=== PATIENT | male | born 1970 | race Caucasian/White ===

== ENCOUNTER 2019-05-10 14:41 | Emergency (ER) | payer SELFPAY ==
--- NOTE | 2019-05-10 14:55 | DI.US_ITS ---
EXAM: US LOWER EXTREMITY VENOUS LT CLINICAL HISTORY: Left leg pain, atraumatic left calf swelling, r/o DVT, left leg. TECHNIQUE: Ultrasound was performed using standard protocol. COMPARISON: No exams were available for comparison FINDINGS: The femoral and popliteal veins and visualized calf veins are freely compressible. The Doppler venou s waveform augments normally. No thrombus is visible. There is a Mcintosh's cyst measuring 5.8 x 1.6 x 4.9 cm. There are internal echoes. Fluid is seen extending into the superomedial calf over a nearl y 10 centimeter area. Findings likely represent a ruptured Mcintosh's cyst. IMPRESSION: No evidence of DVT. Ruptured Mcintosh's cyst versus Mcintosh's cyst and hematoma.
[2019-05-10 14:56] VITALS: BP 142/73; PULSE 78; RESP 16; TEMP 37.1; O2SAT 98
--- NOTE | 2019-05-10 14:59 | ED.GENADUL_ITS ---
Discharge Plan Disposition Patient Disposition: HOME Condition: Stable Discharge Details Chief Complaint: GenMedical Clinical Impression: Mcintosh's cyst, ruptured Primary Care Provider: Keesha Payne ED Provider: Miguel Angel Singh Home Meds and New Rx's Prescriptions: New ibuprofen [IBU] 600 mg tablet 600 mg PO Q6H Qty: 20 RF: 0 Discontinued ibuprofen 800 MG tablet 800 mg PO TID PRN PRNQty: 30 RF: 0 Discharge Instructions Instructions: Compartment Syndrome (GEN), Bakers Cyst (ED) Additional Instructions: Please keep leg strictly elevated and and use crutches for ambulation. Take ibuprofen 600 mg every 6 hours for the next couple days and follow-up with orthopedist. Return immediately for any of the discussed emergent symptoms. Referrals: Cayden Traylor MD [ [facility]FF PHYSICIAN] - Discharge Data Discharge Date/Time-TO BE ENTERED AT DEPARTURE: 05/10/19 19:30 <Miguel Angel Singh NP - Last Filed: 05/16/19 09:39> Patient signed out to me by Marietta BENAVIDES, patient pending official ultrasound results, and further labs. Reviewed patient's labs and has slightly elevated ESR of 27, nondiagnostic CBC with only slight anemia at 13.4, CMP nondiagnostic, patient still pending tick panel and RF. Reviewed plain film imaging and imaging shows unremarkable findings for the wrist and left knee shows effusion with radiologist questioning possible patella fracture. Reassessed patient patient denies any injury or trauma that occurred prior to this event. Upon reassessment did note the patient's leg was very hot and swollen with significant amount of pain and palpation to calf. Question of infection versus possible compartment syndrome given severe tenderness. Patient did report that this morning he did have some paresthesias to the foot. Orthopedic was paged and pending results patient given Rocephin and ketorolac. Spoke with Dr. Traylor who came in to evaluate patient for concern of compartment syndrome. After evaluation by orthopedist patient was cleared for discharge with recommendation for scheduled NSAIDs strict elevation of the extremity and rest. Patient to follow-up with orthopedic office first thing tomorrow morning and states clear understanding of return precautions. After discussion of diagnosis and plan of care patient has no further needs, questions, or concerns and states clear understanding to return to the emergency department for any worsening symptoms. HPI <Demi A Franco, PA - Last Filed: 05/12/19 21:59> General Date/Time Provider Initiated Documentation: 05/10/19 14:55 . HPI Narrative: Is a very pleasant 49-year-old man who presents to the ER today for 2 weeks complaints of leg discomfort. Patient reports history of left knee effusion intermittently for several years. Patient reports onset of left knee swelling for the last 2 weeks which then continued to extend distally. Patient reports the last 3 days significant lower leg swelling which is now becoming increasingly swollen and difficult to ambulate. Patient reports mild warmth. Mild erythema. Patient denies any specific injury or trauma. Patient reports of no the swelling in his lower leg began after his left wrist was swollen without injury or trauma for several days then swelling improved spontaneously without treatment. Patient reports persistent mild stiffness in the left wrist. Patient reports onset of febrile sensation in the last 2 days but no measured temperature. Mild associated chills. Difficulty sleeping at night for the last few nights given chills and leg pain. Patient denies associated headache or dizziness. Denies difficulty breathing shortness of breath or wheezing. No cough, no hemoptysis. Related Data Home Medications Medication Instructions Recorded Confirmed ibuprofen [IBU] 600 mg PO Q6H #20 tab 05/10/19 Previous Rx's Medication Instructions Recorded ibuprofen [IBU] 600 mg PO Q6H #20 tab 05/10/19 Allergies Allergy/AdvReac Type Severity Reaction Status Date / Time No Known Allergies Allergy Unverified 05/10/19 15:01 General Stated Complaint: GenMedical ROGER: 3 Review of Systems <MAKAYLA Simms - Last Filed: 05/12/19 21:59> Review of Systems ROS Unobtainable: All systems reviewed & are unremarkable except as noted in HPI and below Constitutional Constitutional: Reports chills, Reports fever(s), Denies headache(s) and Reports malaise ENT Ears, Nose, Mouth, and Throat: Denies headache(s) and Denies neck pain Musculoskeletal Musculoskeletal: Reports abnormal gait, Denies back pain, Denies deformity and Denies neck pain Integumentary/Breasts Skin/Breast: Reports erythema, Reports skin swelling and Denies wounds Neurologic Neurologic: Reports abnormal gait and Denies headache(s) PFS <MAKAYLA Simms - Last Filed: 05/12/19 21:59> Social History Smoking/Tobacco Use Status: Former Tobacco Use Alcohol Intake: current Alcohol Intake frequency: a few times a month Drug use: Occasionally Substance use type: marijuana Do you feel safe at home: Yes Do you feel safe in your relationship?: Yes Exam <MAKAYLA Simms - Last Filed: 05/12/19 21:59> Narrative Exam Narrative: CONST: Healthy appearing patient, in no acute distress. Well hydrated. Alert and alert. HENMT: Head nomocephalic, normal to inspection. Atraumatic. Hearing grossly normal. EYES: General normal appearance. Alignment normal. Eyelids normal. Conjunctiva normal. NECK: Normal visual inspection. FROM. Trachea midline. No Midline tenderness. CHEST: Normal insepection of the chest. RESP: Normal respiratory effort. Speaking full sentences. No cough. No audible wheezing. No retractions. CARDIO: No JVD. No murmurs or rubs. MUSCULOSKELETAL: Normal Gait. FROM of all extremities. Significant swelling to the left leg compared to the right. Moderate left-sided knee effusion. Able to flex and extend with some difficulty due to swelling in the left knee. No obvious joint infection. Moderate swelling throughout the entire lower leg beyond the knee. Swelling involves the foot. Erythema to the moe without focal wounds or drainage. Pulses are intact distally. Sensation intact distally SKIN: Normal. Dry. No rashes. NEURO: Alert and awake. Speech clear. PSYCH: Normal affect. Cooperative. Sign Out <MAKAYLA Simms - Last Filed: 05/12/19 21:59> Sign Out Data: Sign Out Comment: Signed out pending official ultrasound read, lab results and disposition for complaints of significant left lower leg swelling. Last updated by Demi Franco PA at 05/10/19 16:22
[2019-05-10 15:15] LABS: Abs Immature Grans 0.02 k/cumm (0.0-0.09); Absolute Basophil Count 0.02 k/cumm (0.0-0.2); Absolute Lymphocyte Count 1.66 k/cumm (1.2-3.4); Absolute Monocyte Count 1.24 k/cumm (0.11-0.7); Absolute Neutrophil Count 7.17 k/cumm (1.2-6.7); Basophils % 0.2; HCT 39.3 % (40.0-50.0); HGB 13.4 g/dL (13.5-17.5); Immature Grans % 0.2; Lymphocytes % 16.3; Mean Corp. HGB Concentration 34.1 g/dL (32.0-36.0); Mean Corpuscular Hemoglobin 30.9 pg (27.0-33.0); Mean Corpuscular Volume 90.8 fL (80-95); Mean Platelet Volume 9.8 fL (8.0-11.0); Monocytes % 12.1; Neutrophils % 70.2; Platelet Count 243 x1000/uL (130-400); RBC 4.33 m/cumm (4.50-6.00); RBC Distribution Width 12.2 % (11.8-14.1); White Blood Cell Count 10.21 k/cumm (4.4-10.8)
[2019-05-10 15:26] LABS: ALT 13 U/L (16-63); AST 14 U/L (15-37); Albumin 3.4 g/dL (3.4-5.0); Alkaline Phosphatase 69 U/L (46-116); Anion Gap 9.2 mmol/L (3-11); BUN 12 mg/dL (7-18); Bilirubin, Total 0.8 mg/dL (0.2-1.0); CO2 26.8 mmol/L (21.0-32.0); CREATININE 1.02 mg/dL (0.70-1.30); Calcium 8.4 mg/dL (8.5-10.1); Chloride 102 mmol/L (98-107); Glucose 105 mg/dL (70-100); Potassium 4.5 mmol/L (3.5-5.1); Sodium 138 mmol/L (136-145); Total Protein 7.5 g/dL (6.4-8.2)
[2019-05-10 17:17] LABS: ESR 27 mm/hr (0-15)
--- NOTE | 2019-05-10 17:29 | DI.RAD_ITS ---
EXAM: XR WRIST LT COMPLETE INDICATION: pain. COMPARISON: No exams were available for comparison TECHNIQUE: 2D digital imaging was performed. FINDINGS: There is no evidence of a fracture or dislocation. IMPRESSION
--- NOTE | 2019-05-10 17:41 | DI.RAD_ITS ---
EXAM: XR KNEE LT 4V AP,LAT,RAFAEL,PAT INDICATION: pain. COMPARISON: No exams were available for comparison TECHNIQUE: 2D digital imaging was performed. FINDINGS: The bony structures are normally mineralized. A joint effusion is demonstrated. I could not absolutel y exclude a fracture. There is no evidence of displacement. Further assessment with CT could be obt ained.
--- NOTE | 2019-05-10 17:53 | DI.VRAD_ITS ---
PROCEDURE INFORMATION: Exam: XR Left Knee Exam date and time: 05/10/2019 5:36 PM Clinical history: 49 years old, male; Other: Pain TECHNIQUE: Imaging protocol: XR Left knee. Views: 4 or more views. COMPARISON: CR LEFT KNEE 3 VIEW COMPLETE 09/29/2017 4:18 PM FINDINGS: Bones/joints: Moderate joint effusion. Internal arrangement is not excluded. Consider MRI. Suspect comminuted patellar fracture with no displacement. Soft tissues: Normal. IMPRESSION: Moderate joint effusion. Internal arrangement is not excluded. Consider MRI. Suspect comminuted patellar fracture with no displacement. Dictated and Authenticated by: Junior Gayle MD. Ordering:JI Simms MD
--- NOTE | 2019-05-10 17:53 | DI.VRAD_ITS ---
PROCEDURE INFORMATION: Exam: XR Left Wrist Exam date and time: 05/10/2019 5:36 PM Clinical history: 49 years old, male; Other: Pain TECHNIQUE: Imaging protocol: XR Left wrist. Views: 3 or more views. COMPARISON: No relevant prior studies available. FINDINGS: Bones/joints: Normal. Soft tissues: Normal. IMPRESSION: No acute findings. Dictated and Authenticated by: Junior Gayle MD. Ordering:DAVE Michelle MD
[2019-05-10 18:25] VITALS: BP 132/77; PULSE 76; RESP 14; O2SAT 97
[2019-05-10] MEDS: cefTRIAXone 1 GM/50 ML BAG IVPB (18:38)
--- NOTE | 2019-05-10 18:48 | NUR.NOTE ---
Nursing Note: consult for general surgery for compartment syndrome.
[2019-05-10] MEDS: Ketorolac 30 MG/ML VIAL IVP (18:55)
--- NOTE | 2019-05-10 18:59 | NUR.NOTE ---
Nursing Note: ortho at bedside to eval for compartment syndrome at this time.
[2019-05-10 19:44] LABS: C-Reactive Protein 11.29 mg/dL (0.0-0.3)
[2019-05-11 10:52] LABS: Lyme Ab w Rflx to Lyme Confirm Negative
[2019-05-11 11:36] LABS: Rheumatoid Factor 16 IU/mL (<12.5)
[2019-05-12 17:28] LABS: Anaplasma phagocytophilum Negative (Negative); B. miyamotoi PCR Negative (Negative); Babesia divergens/MO-1 Negative (Negative); Babesia duncani Negative (Negative); Babesia microti Negative (Negative); Ehrlichia chaffeensis Negative (Negative); Ehrlichia ewingii/canis Negative (Negative); Ehrlichia muris eauclairensis Negative (Negative)
== END 2019-05-10 19:30 | disposition home or self-care (01) ==
PROVIDERS: Physician Assistant; Emergency Provider Nurse Practitioner Family; PCP Nurse Practitioner Family
DX: M66.0 Rupture of popliteal cyst (principal)
CPT/HCPCS: 80053; 85652; 87798; 96365; 96374; 99284; 73110; 73564; 85025; 86140; 86431; 86618; 93971; E0114; J0696; J1885

== ENCOUNTER 2019-09-30 09:09 | Outpatient (CLI) | payer BC, SELFPAY ==
--- NOTE | 2019-09-30 08:45 | DI.RAD_ITS ---
EXAM: XR WRIST LT LIMITED INDICATION: left wrist pain; tingling. COMPARISON: XR WRIST LT COMPLETE from 05/10/2019 TECHNIQUE: 2D digital imaging was performed. FINDINGS: Radial and ulnar deviation views were performed. There is some narrowing of the radial carpal joint . There is no widening of the scapholunate distance. There is a chronic appearing deformity at the r adial aspect of the distal pole of the navicular. A smoothly marginated deformity is also seen at the ulnar aspect of the triquetrum. Degenerative changes are also seen at the scaphoid trapezium and tr apezium 1st metacarpal joints. IMPRESSION: [id number] degenerative changes. Mild contour deformities of the scaphoid and triquetral may b e secondary to old fractures. DATA REPOSITORY: RADIATION DOSE DELIVERED:
== END 2019-09-30 09:29 ==
PROVIDERS: PCP Nurse Practitioner Family; Visit Provider Physician Assistant
DX: M25.532 Pain in left wrist (principal); M19.032 Primary osteoarthritis, left wrist
CPT/HCPCS: 73100

== ENCOUNTER 2020-11-21 19:49 | Outpatient (REF) | payer BC, SELFPAY ==
[2020-11-21 18:10] LABS: HCT 42.4 % (40.0-50.0); HGB 14.3 g/dL (13.5-17.5); MCH 31.6 pg (27.0-33.0); MCHC 33.7 % (32.0-36.0); MCV 93.8 fL (80-95); MPV 10.8 fL (8.0-11.0); Platelet Count 200 10^3/uL (130-400); RBC 4.52 10^6/uL (4.36-5.78); RDW 12.7 % (11.8-14.1); RDW-SD 44.1 fL; WBC 6.21 10^3/uL (4.4-10.8)
[2020-11-21 18:32] LABS: BUN 16 mg/dL (7-18); Calcium 9.1 mg/dL (8.5-10.1); Calculated LDL 131 mg/dL (<100); Chloride 105 mmol/L (98-107); Cholesterol 221 mg/dL (<200); Glucose 82 mg/dL (74-106); HDL Cholesterol 79 mg/dL (40-60); Potassium 4.7 mmol/L (3.5-5.1); Sodium 142 mmol/L (136-145); Triglyceride 56 mg/dL (<150)
== END 2020-11-21 19:50 | disposition home or self-care (01) ==
LOC: NCHCN 19:49
PROVIDERS: PCP Nurse Practitioner Family; Visit Provider Nurse Practitioner Family
DX: Z00.00 Encounter for general adult medical examination without abnormal findings (principal); Z13.220 Encounter for screening for lipoid disorders; Z13.0 Encounter for screening for diseases of the blood and blood-forming organs and certain disorders involving the immune mechanism; Z13.228 Encounter for screening for other metabolic disorders
CPT/HCPCS: 80048; 80061; 85027

== ENCOUNTER 2021-05-02 02:18 | Outpatient (CLI) | payer BC, SELFPAY ==
--- NOTE | 2021-05-02 | DI.RAD_ITS ---
Exam(s) XR ELBOW RT COMPLETE EXAM: XR ELBOW RT COMPLETE CLINICAL HISTORY: RT ELBOW PAIN, M25.521. TECHNIQUE: 2D digital imaging was performed of the left elbow. Three images were obtained. AP, lat eral and oblique views were obtained. COMPARISON: No exams were available for comparison FINDINGS: BONES: No acute fracture is present. No bony destructive lesion is seen. A small enthesophyte at the olecranon. JOINTS: The elbow is normally aligned. No joint effusion is seen. There is a small spur at the corono id process. SOFT TISSUE: There is some lifting of the anterior fat pad which may represent a small effusion. Wel l corticated osseous densities are seen adjacent to the medial epicondyle which are old. IMPRESSION: Question of a small elbow joint effusion. No acute abnormality. If there is concern for internal de rangement an MRI may be considered for further evaluation. DATA REPOSITORY: RADIATION DOSE DELIVERED:
--- NOTE | 2021-05-02 | DI.RAD_ITS ---
Exam(s) XR WRIST LT COMPLETE EXAM: XR WRIST LT COMPLETE CLINICAL HISTORY: LT WRIST PAIN,M25.532. TECHNIQUE: 2D digital imaging was performed of the left wrist. Three images were obtained. PA, obl ique and lateral views were obtained. COMPARISON: CR XR WRIST LT COMPLETE from 05/10/2019 CR XR WRIST LT LIMITED from 09/30/2019 CR XR WRIST LT LIMITED from 09/30/2019 FINDINGS: BONES: No acute fracture is present. No bony destructive lesion is seen. Unchanged chronic deformitie s of the scaphoid and triquetrum. JOINTS: The carpal bones are normally aligned. Joint spaces are well maintained. SOFT TISSUE: Normal. IMPRESSION: No acute abnormality. DATA REPOSITORY: RADIATION DOSE DELIVERED:
== END 2021-05-02 02:38 ==
PROVIDERS: PCP Nurse Practitioner Family; Visit Provider Nurse Practitioner Family
DX: M25.521 Pain in right elbow (principal); M25.532 Pain in left wrist
CPT/HCPCS: 73080; 73110

== ENCOUNTER 2023-10-09 12:28 | Outpatient (REF) | payer BC, SELFPAY ==
[2023-10-09 15:37] LABS: HCT 41.5 % (40.0-50.0); MCH 31.1 pg (27.0-33.0); MCHC 33.7 % (32.0-36.0); MCV 92 fL (80-95); MPV 10.9 fL (8.0-11.0); Platelet Count 207 10^3/uL (130-400); RDW 12.7 % (11.8-14.1); RDW-SD 43.2 fL; WBC 6.41 10^3/uL (4.4-10.8)
[2023-10-09 15:59] LABS: Anion Gap 7.7 mmol/L (3-11); BUN 18 mg/dL (7-18); CO2 28.3 mmol/L (21.0-32.0); CREATININE 1.1 mg/dL (0.70-1.30); Calcium 9.3 mg/dL (8.5-10.1); Calculated LDL 92 mg/dL (<100); Chloride 104 mmol/L (98-107); Cholesterol 176 mg/dL (<200); Estimated GFR 80.77 (mL/min/1.73m2); Glucose 101 mg/dL (74-106); HDL Cholesterol 78 mg/dL (40-60); Potassium 4.9 mmol/L (3.5-5.1); Sodium 140 mmol/L (136-145); Triglyceride 34 mg/dL (<150)
== END 2023-10-09 12:29 | disposition home or self-care (01) ==
LOC: NCHCN 12:28
PROVIDERS: Referring Provider Physician Assistant; Visit Provider Physician Assistant
DX: Z00.00 Encounter for general adult medical examination without abnormal findings (principal); E78.5 Hyperlipidemia, unspecified; R03.0 Elevated blood-pressure reading, without diagnosis of hypertension
CPT/HCPCS: 80048; 80061; 85027

== ENCOUNTER 2023-10-26 08:27 | Day surgery (SDC) | payer BC, SELFPAY ==
--- NOTE | 2023-10-25 12:11 | PDOC.DSDIS_ITS ---
Date of service: 10/26/23 Time of Service: 10:27 Discharge Plan Disposition Patient Disposition: Home Condition: Good Discharge Details Reason For Visit: screening colonoscopy Attending Provider: Robson Calzada Primary Care Provider: Gilberto Benito Home Meds and New Rx's Prescriptions: New tramadol 50 mg tablet 50 mg PO Q8H PRNQty: 9 0RF Rx Instructions: Take 1 tablet by mouth up to every 8 hours if needed for severe pain. Continued ibuprofen [IBU] 600 mg tablet 600 mg PO Q6H Qty: 20 0RF Discontinued bisacodyl [Dulcolax (bisacodyl)] 5 mg tablet,delayed release (DR/EC) 5 mg PO ONCE Qty: 4 0RF Rx Instructions: Take per colonoscopy instructions provided by ordering providers office polyethylene glycol 3350 17 gram/dose powder 17 g PO ONCE Qty: 238 0RF Rx Instructions: Take per colonoscopy instructions provided by ordering providers office Discharge Instructions Instructions: Rubber Band Ligation (DC) Additional Instructions: Josh, we were able to complete the colonoscopy today without any difficulty. I did find 2 polyps. Both of these were small, and I removed them during the course of the colonoscopy. It will take a week or 2 for me to get the results of the polyp analysis, and that will help inform us regarding the timing of your next colonoscopy. Like we talked about beforehand, you also have significant amount of internal hemorrhoid disease. I banded 2 of 3 hemorrhoid columns today. These had the largest hemorrhoids. Hopefully this will provide some relief. The other hemorrhoids can be banded in the future if that remains problematic for you. Like we talked about beforehand, generally internal hemorrhoid banding is well- tolerated, but it can be painful for some patients. I do recommend taking Tylenol and ibuprofen [id number] for the next 24 hours. I suggest alternating these. I have also provided a prescription for stronger pain medic ation if needed. We have attached some general information here regarding hemorrhoid banding instructions as well. I do think that obtaining a sitz bath from the pharmacy, or just using a bathtub at home if you have 1 can be quite helpful for anal discomfort should you develop it. I have taken the liberty of making a follow-up appointment in our office on November 10. If you have any issue in the meantime, please do not hesitate to call at any point. Stand Alone Forms: Anesthesia Discharge Inst., Kate Nava ([facility]) Referrals: Robson Calzada MD [ [facility] STAFF PHYSICIAN] - (November 10 at 10:30 AM) Activity:: Activity as Tolerated Diet:: As Tolerated Discharge Orders Discharge Orders: Discharge Order (Routine); Ordered 10/25/23 Ordered By: Robson Calzada DS: Diagnosis Discharge Diagnosis (1) Encounter for screening colonoscopy: Status: Acute Asessment and Plan: Follow-up on polypectomy results; outpatient post procedure follow-up for hemorrhoid banding
--- NOTE | 2023-10-25 12:12 | W.COLOREPORT ---
Date of service: 10/26/23 Time of Service: 10:42 Colonoscopy Report Date of procedure: 10/26/23 Pre-op diagnosis general: screening colonoscopy Post-op diagnosis procedure note: other (Colorectal polyps, internal hemorrhoids) Procedure: colonoscopy with polypectomy, and internal hemorrhoid banding Surgeon: Robson Calzada Anesthesia Type: General:No Airway Estimated blood loss (mL): 5 Pathology: other (0.25 cm polyp at 25 cm, 0.25 cm polyp at 15 cm) Complications: None Disposition: same day Indications: Josh is 53 years old. He needs a screening colonoscopy for routine health maintenance. Prep: Miralax/Dulcolax Procedure Start Time: 10:00 Procedure End Time: 10:17 Retraction Time: 11 Findings: 0.25 cm polyp at 25 cm, 0.25 cm polyp at 15 cm; internal hemorrhoids Procedure Description: After the induction of monitored anesthetic care, and with the patient in left lateral decubitus position, I began by performing an external anorectal exam.? Perineum and skin were normal, as was the anal verge.? There were some perianal skin tags consistent with fibrosed old hemorrhoids.? Next, I performed a digital rectal exam.? I did not appreciate any abnormal findings.? Next, I advanced a colonoscope into the rectal vault.? I performed retroflexion.? There are internal hemorrhoids.? Using insufflation, I then advanced the colonoscope beyond the rectal folds and into the sigmoid colon before advancing towards the cecum.? The scope was noted to be in the cecum by identification of the ileocecal valve and appendiceal orifice.? I then began withdrawing the colonoscope using repeated irrigation as necessary for full evaluation of the colonic mucosa. I found flat polyps at 25 cm from the anal verge as well as 15 cm. Both of these were flat. I removed these both with cold forceps, and I would estimate the size of these each to be less than 0.25 cm. Once the scope was withdrawn to the level of the rectum, great care was taken to examine portions of the rectal folds.? The scope was then withdrawn, and I performed fiberoptic lit anoscopy. There were internal hemorrhoids on all 3 columns. The right posterior and left lateral column are the most dominant. I performed rubber band ligation of these 2 columns. Patient was then transferred back to the day surgery unit for recovery. [place] Bowel Prep [place] Bowel Prep Right Colon: 3 Left Colon: 3 Transverse Colon: 3 Total Score: 9
[2023-10-26 08:34] VITALS: BP 142/82; PULSE 67; RESP 20; TEMP 36.4; O2SAT 99
[2023-10-26] MEDS: Lactated Ringers 1,000 ML 80 ML IV (08:51)
--- NOTE | 2023-10-26 08:56 | W.ANESPRE ---
General Info Date of Service Date Performed: 10/26/23 Height: 6 ft 2 in Weight: 96.7 kg Body Mass Index (BMI): 27.3 Surgical Procedure: Operation Date: 10/26/23 09:55 Proposed Procedure Side Surgeon p Colonoscopy Robson Calzada MD s Possible Hemorrhoid Banding Robson Calzada MD Meds Allergies and Home Medications Allergies Allergy/AdvReac Type Severity Reaction Status Date / Time No Known Allergies Allergy Verified 10/26/23 08:40 Home Medication Medication Instructions Recorded ibuprofen 600 mg tablet (IBU) 600 mg PO Q6H #20 tabs 05/10/19 Current Visit Medications: Current Medications Generic Name Dose Route Start Last Admin Trade Name Freq PRN Reason Stop Dose Admin Hyoscyamine Sulfate 0.125 mg 10/25/23 12:13 Hyoscyamine 0.125 Mg Sl/Oral/Chew SL 11/24/23 12:12 DIRECTED PRN Ringer's Solution 1,000 mls @ 80 mls/hr 10/26/23 06:00 10/26/23 08:51 IV 11/22/23 23:59 80 mls/hr INFUSION HALIMA Administration IV Miscellaneous Supplies 1 each 10/26/23 06:00 Iv Access IV 11/22/23 23:59 DIRECTED HALIMA Ondansetron HCl 4 mg 10/25/23 12:13 Ondansetron 4 Mg/2 Ml Vial IVP 11/24/23 12:12 Q4H PRN PRN Nausea / Vomiting Sodium Chloride 0 ml 10/26/23 06:00 Normal Saline Flush 10 Ml Syr IV 11/22/23 23:59 PRN PRN Sodium Chloride 0 ml 10/26/23 06:00 Normal Saline 10 Ml Vial IJ 11/22/23 23:59 DIRECTED PRN Sterile Water 0 ml 10/26/23 06:00 Water,Injection,Sterile 10 Ml Vial IJ 11/22/23 23:59 DIRECTED PRN PFSH Active Problems Active Problems: Problem Status Onset Code Encounter for screening colonoscopy Z12.11 Hyperlipidemia E78.5 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 Knee pain, left M25.562 Wrist pain, left M25.532 Surgical History Surgical History S/P colonoscopy 05/11/2012 Tobacco Smoking/Tobacco Use Status: Former Tobacco Use Alcohol Alcohol Intake: current Alcohol intake frequency: 0-2 drinks per day Alcohol type: beer Substance Use Substance use: Occasionally Substance use type: marijuana Vital Signs and Lab Results Vital Signs Most Recent Vital Signs in EMR: Most Recent Vital Signs Temp Pulse Resp BP Pulse Ox 36.4 C L 67 20 142/82 H 99 10/26/23 08:34 10/26/23 08:34 10/26/23 08:34 10/26/23 08:34 10/26/23 08:34 Lab Results Blood Type / Crossmatch: No Data to Display Complete Blood Count: White Blood Count 6.41 10^3/uL (4.4-10.8) 10/09/23 10:30 Red Blood Count 4.50 10^6/uL (4.36-5.78) 10/09/23 10:30 Hemoglobin 14.0 g/dL (13.5-17.5) 10/09/23 10:30 Hematocrit 41.5 % (40.0-50.0) 10/09/23 10:30 Platelet Count 207 10^3/uL (130-400) 10/09/23 10:30 Complete Metabolic Panel: Sodium 140 mmol/L (136-145) 10/09/23 10:30 Potassium 4.9 mmol/L (3.5-5.1) 10/09/23 10:30 Chloride 104 mmol/L (98-107) 10/09/23 10:30 Carbon Dioxide 28.3 mmol/L (21.0-32.0) 10/09/23 10:30 BUN 18 mg/dL (7-18) 10/09/23 10:30 Creatinine 1.1 mg/dL (0.70-1.30) 10/09/23 10:30 Est GFR (CKD-EPI 2020) 80.77 (mL/min/1.73m2) 10/09/23 10:30 Calcium 9.3 mg/dL (8.5-10.1) 10/09/23 10:30 Glucose 101 mg/dL (74-106) 10/09/23 10:30 Liver Function Panel: No Data to Display Coagulation Panel: No Data to Display Cardiac Panel: No Data to Display Arterial Blood Gas: No Data to Display Venous Blood Gas: No Data to Display Pancreas Panel: No Data to Display Thyroid Panel: No Data to Display Infectious Disease: No Data to Display Blood Cultures: No Data to Display Toxicology Panel: No Data to Display Anesthesia Assessment and Plan Anesthesia History Personal History: No History of Anesthesia Complications Family History: No Family History of Anesthesia Complications Exercise Tolerance Exercise Tolerance: Metabolic Equivalents>4 Pertinent Negatives Pertinent Negatives: No Symptoms of GERD Cardiac & Pulmonary Exam Cardiac Exam: Normal S1/S2 Heart Sounds Pulmonary Exam: Clear Bilateral Breath Sounds Implantable Cardiac Device Does patient have a Pacemaker or an ICD?: No Airway Exam Known Difficult Airway: No Mallampati Class: 1 Mouth Opening: Normal (> 3cm) Thyromental Distance: Greater than 3 cm Neck Range of Motion: Full ROM Neck Circumference: Normal Teeth Condition: Normal Dentition ASA Classification ASA Score: ASA 1 Emergency Case?: No NPO Status NPO Status: NPO Clears >2 hours, Solids >8 hours Anesthesia Plan Resuscitation Status: Full Code Anesthesia Technique: General Anesthesia Airway Planned: Natural Airway Monitors Used: Standard Monitors
[2023-10-26 09:01] VITALS: BMI 27.3
--- NOTE | 2023-10-26 10:13 | BOWEL_PTH ---
PATIENT: Josh Lerner LOC: [facility] U#:[id number] AGE/SX: 53/M ROOM: RE10/26/[address]: Robson Calzada MD : 1970 BED: DIS: 10/26/2023 SPEC #: [id number] RECD: 10/26/23 12:16 STATUS: YULI REQ #: [id number] KATHERINE: 10/26/23 10:[address]: Robson Calzada DEPT: Surgical Specimen RECD BY: Tracey Jimenez ENTERED: 10/26/23 12:16 SP TYPE: Bowel OTHR DR: Gilberto Benito Tissues: 1 - BIOPSY BOWEL 2 - BIOPSY BOWEL Procedures: GROSS AND MICRO LEVEL 4 Comments: [id number]
[2023-10-26 10:25] VITALS: BP 126/77; PULSE 56; RESP 16; TEMP 36.4; O2SAT 99
--- NOTE | 2023-10-26 10:45 | W.ANESPOSTOP ---
Postoperative Evaluation Date, Time and Location Date Performed: 10/26/23 Time Performed: 10:45 Patient Location: Day Surgery Unit Vital Signs Most Recent Imported Vital Signs: Most Recent Vital Signs Temp Pulse Resp BP Pulse Ox 36.4 C L 56 L 16 126/77 99 10/26/23 10:25 10/26/23 10:25 10/26/23 10:25 10/26/23 10:25 10/26/23 10:25 Pain Score Most Recent Pain Score: Most Recent Pain Score Pain Level 0 10/26/23 10:25 Assessment Mental Status: Awake (Alert & Oriented to Patient Baseline) Airway and Respiratory Function: Patent airway with normal (patient baseline) respiratory exam Cardiovascular Function: Hemodynamically Stable Hydration Status: Adequately Hydrated Nausea & Vomiting: No Nausea or Vomiting Pain: Pt. Denies Any Pain Peripheral Nerve Block: Patient did not receive a nerve block
[2023-10-26 10:57] VITALS: BP 136/94; PULSE 48; RESP 16; TEMP 36.5; O2SAT 100
== END 2023-10-26 11:15 | disposition home or self-care (01) ==
LOC: SUR 08:28
PROVIDERS: PCP Physician Assistant; Visit Provider Surgery
PROC: 0DJD8ZZ Inspection of Lower Intestinal Tract, Via Natural or Artificial Opening Endoscopic (ICD-10-PCS; CPT 45378; principal; 2023-10-26 09:45)
PROC: (CPT 45398; 2023-10-26 09:45)
DX: Z12.11 Encounter for screening for malignant neoplasm of colon (principal); K64.9 Unspecified hemorrhoids; D12.7 Benign neoplasm of rectosigmoid junction; D12.5 Benign neoplasm of sigmoid colon
CPT/HCPCS: 45398; 45380; 88305; J2704